=== PATIENT | male | born 1990 | race Caucasian/White ===

== ENCOUNTER 2017-05-11 21:49 | Emergency (ER) | payer SELFPAY ==
[2017-05-11] MEDS ORDERED: Bacitracin Zinc 1 Packet ONE (22:04)
[2017-05-11] MEDS ORDERED: Cephalexin 500 MG CAP ONE (22:12)
== END 2017-05-11 22:24 | disposition home or self-care (01) ==
LOC: BURERS 21:49
DX: S61.212A Laceration without foreign body of right middle finger without damage to nail, initial encounter (principal); F17.210 Nicotine dependence, cigarettes, uncomplicated; W27.8XXA Contact with other nonpowered hand tool, initial encounter
CPT/HCPCS: 90471

== ENCOUNTER 2017-10-26 11:50 | Emergency (ER) | payer SELFPAY ==
[2017-10-26] MEDS ORDERED: methylPREDNISolone Acetate 40 mg/ml Vial ONE (12:09)
== END 2017-10-26 12:36 | disposition home or self-care (01) ==
LOC: BURERS 11:50
DX: L23.9 Allergic contact dermatitis, unspecified cause (principal); F17.210 Nicotine dependence, cigarettes, uncomplicated
CPT/HCPCS: 96372; J1030